=== PATIENT | female | born 1970 | race American Indian/Alaskan Native ===

== ENCOUNTER 2021-08-31 15:01 | Emergency (ER) | payer SELFPAY ==
[2021-08-31 15:19] VITALS: BP 131/92
--- NOTE | 2021-08-31 16:40 | Emergency Department Report ---
- General Chief Complaint: Weakness Stated Complaint: TESTED POS FOR COVID Time Seen by Provider: 08/31/21 15:39 Source: patient Mode of arrival: Ambulatory Limitations: No Limitations - History of Present Illness Initial Comments: 51-year-old female the past medical history of obesity, asthma (2 previous intubations), hypertension, and elevated cholesterol presents to the hospital complaining of COVID symptoms. Patient was referred here by employee health. 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 She was exposed to a COVID-positive patient and developed symptoms over the last 2 to 3 days. Patient had a headache, body aches, sore throat, and congestion. She does not complain of significant cough or shortness of breath at this time. She was admitted to the hospital in November 2019 with COVID at [facility] with a saturation of 82%. Patient states she was close to being placed on a ventilator and is concerned that she requires early treatment to prevent progression of COVID. Patient would like to be prescribed Paxlovid. Patient did have a allergic reaction to the Moderna COVID-vaccine - Related Data Previous Rx's Medication Instructions Recorded Last Taken Type Nirmatrelvir/Ritonavir [Paxlovid 1 each PO BID 5 Days tab 08/31/21 Unknown Rx 2X150 mg-100 mg (Eua)] Tiotropium [place] [Spiriva] 1 puff IH DAILY #1 inh 08/31/21 Unknown Rx Allergies Allergy/AdvReac Type Severity Reaction Status Date / Time cephalexin Allergy Anaphylaxis Verified 08/31/21 15:24 COVID-19 vaccine, mRNA, Allergy Anaphylaxis Verified 08/31/21 15:24 [id number], [From Moderna COVID-19 Booster (EUA)] furosemide [From Lasix] Allergy Anaphylaxis Verified 08/31/21 15:24 Iodinated Contrast Media Allergy Anaphylaxis Verified 08/31/21 15:24 Iodine and Iodide Containing Allergy Anaphylaxis Verified 08/31/21 15:24 Produc ED Review of Systems ROS: Stated complaint: TESTED POS FOR COVID Other details as noted in HPI Comment: All other systems reviewed and negative ED Past Medical Hx - Medications Home Medications: Home Medications Medication Instructions Recorded Confirmed Last Taken Type Nirmatrelvir/Ritonavir [Paxlovid 1 each PO BID 5 Days tab 08/31/21 Unknown Rx 2X150 mg-100 mg (Eua)] Tiotropium [place] [Spiriva] 1 puff IH DAILY #1 inh 08/31/21 Unknown Rx ED Physical Exam - General Limitations: No Limitations - Other Other exam information: General: No acute distress Head: Atraumatic Eyes: normal appearance ENT: Moist mucous membranes Neck: Normal appearance, no midline tenderness Chest: Clear to auscultation bilaterally CV: Regular rate and rhythm Abdomen: Soft, normal bowel sounds, nontender, nondistended, no rebound or guarding Back: Normal inspection Extremity: Normal inspection, full range of motion Neuro: Alert O x 3, no facial asymmetry, speech clear, no gross motor sensory deficit Psych: Appropriate behavior Skin: No rash ED Course Vital Signs 08/31/21 15:16 Temperature 99.1 F Pulse Rate 92 H Respiratory 18 Rate Blood Pressure 131/92 [Right] O2 Sat by Pulse 99 Oximetry - Consultations Consultation #1: 08/31/21 16:[address] Solano infectious disease and agrees to prescribe Paxlovid 300 mg / 100 mg twice daily x5. States that she will have to find a pharmacy that carries medication and cautions about drug interactions. I went for patient to have the pharmacist check with her other meds for possible drug interactions ED Medical Decision Making - Radiology Data Radiology results: report reviewed CHEST 2 VIEWS INDICATION / CLINICAL INFORMATION: covid + cough. COMPARISON: None available. FINDINGS: SUPPORT DEVICES: None. HEART / MEDIASTINUM: No significant abnormality. LUNGS / PLEURA: No significant pulmonary abnormality. No significant pleural effusion. No pneumothorax. ADDITIONAL FINDINGS: No significant additional findings. IMPRESSION: 1. No acute abnormality of the chest. - Medical Decision Making 51-year-old female with COVID-19 positive diagnosis presents from [facility] for additional treatment. Patient is a high risk patient given previous COVID hypoxic admission with near intubation. Case discussed with sharifa chris who recommends taking Paxlovid and cautions about drug interactions. Patient will be advised to discuss possible interactions with her pharmacist. This time patient does not have hypoxia or infiltrate on chest x-ray Patient requested a refill in [facility] Critical Care Time: No Critical care attestation.: If time is entered above; I have spent that time in minutes in the direct care of this critically ill patient, excluding procedure time. ED Disposition Clinical Impression: COVID-19 Disposition: 01 HOME / SELF CARE / HOMELESS Is pt being admited?: No Does the pt Need Aspirin: No Condition: Stable Instructions: COVID-19 Additional Instructions: Take the medication as prescribed. Follow-up with your doctor or doctor/clinic provided. Return if symptoms worsen as indicated by your discharge instructions. It is very important that you discuss your current medications with the pharmacist to ensure that there are not any significant interactions with Paxlovid. Prescriptions: Nirmatrelvir/Ritonavir [Paxlovid 2X150 mg-100 mg (Eua)] 1 each PO BID 5 Days tab Tiotropium [place] [Spiriva] 1 puff IH DAILY #1 inh Referrals: LORENA BAI MD [Staff Physician] - 3-5 Days (Infectious disease doctor ) Time of Disposition: 17:33
[2021-08-31] MEDS ORDERED: ACETAMINOPHEN 325 MG TAB PO ONE (17:05)
--- NOTE | 2021-08-31 17:13 | XRay Report ---
CHEST 2 VIEWS INDICATION / CLINICAL INFORMATION: covid + cough. COMPARISON: None available. FINDINGS: SUPPORT DEVICES: None. HEART / MEDIASTINUM: No significant abnormality. LUNGS / PLEURA: No significant pulmonary abnormality. No significant pleural effusion. No pneumothora x. ADDITIONAL FINDINGS: No significant additional findings. IMPRESSION: 1. No acute abnormality of the chest. Signer Name: Star Casey MD Signed: 08/31/2021 5:06 PM Workstation Name: [id number]
== END 2021-08-31 18:09 | disposition home or self-care (01) ==
LOC: ED 15:01
DX: U07.1 COVID-19 (principal); R05.9 Cough, unspecified; R06.02 Shortness of breath; Z88.1 Allergy status to other antibiotic agents; Z88.8 Allergy status to other drugs, medicaments and biological substances; Z91.041 Radiographic dye allergy status
CPT/HCPCS: 71046; 99283